=== PATIENT | male | born 1975 | race Caucasian/White ===

== ENCOUNTER 2016-07-15 13:27 | Emergency (ER) | payer OTHER ==
[~2016-07-15] VITALS: Ht 170.2 cm; Wt 104.5 kg
[~2016-07-15 13:27] MED LIST: ASPIRIN EC650 MG PO; BENZONATATE200 MG PO; CLONAZEPAM0.5 MG PO; CYANOCOBALAM1000 MCG PO; DILAUDID2 MG PO; LEVOFLOXACIN750 MG PO; LEXAPRO10 MG PO; NOHOMEMEDS; VISTARIL25 MG PO
[2016-07-15 14:11] VITALS: BP 144/88
== END 2016-07-15 14:11 | disposition home or self-care (01) ==
LOC: EME 13:27
DX: S89.91XA Unspecified injury of right lower leg, initial encounter (principal); M25.561 Pain in right knee; W01.0XXA Fall on same level from slipping, tripping and stumbling without subsequent striking against object, initial encounter; Y99.0 Civilian activity done for income or pay; Z87.891 Personal history of nicotine dependence
CPT/HCPCS: 99281; 99283